=== PATIENT | female | born 1985 | race Caucasian/White ===

== ENCOUNTER 2021-03-20 18:38 | Inpatient (IN) | payer BC ==
[2021-03-20 20:20] VITALS: BMI 34.0
[2021-03-20] MEDS ORDERED: hydrALAZINE 20 MG/ML VIAL SLOW IVP PRN ×2 (21:23)
[2021-03-20] MEDS ORDERED: Ondansetron PF 4 MG/2 ML Vial IVP PRN (21:23)
[2021-03-20] MEDS ORDERED: Dextrose 5%-Lactated Ringers 1,000 ML IV SCH (22:00)
[2021-03-20 23:17] LABS: Hemoglobin 13.2 g/dL (12.0-15.5); Mean Corpuscular HGB CONC 33.9 g/dL (32.0-36.0); Mean Corpuscular Hemoglobin 32.8 pg (27.0-33.0); Mean Corpuscular Volume 96.8 fl (81.6-98.3); Mean Platelet Volume 12.1 fl (7.4-10.4); Platelet Count 256 10x3/uL (150-450); RBC Distribution Width 12.9 % (11.5-14.5); Red Blood Cell (RBC) Count 4.02 10x6/uL (3.90-5.03); White Blood Cell (WBC) Count 11.4 10x3/uL (3.5-10.5)
[2021-03-20] MEDS ORDERED: NS w/ Oxytocin 30 units 500 ML IV SCH (23:25)
[2021-03-21 00:08] LABS: Hep B Surf Ag Non-Reactive S/CO (NonReactive); Syphilis Antibody Nonreactive (Nonreactive); Syphilis Antibody Index 0.04 S/CO (<1.00 Non-Reactive)
[2021-03-21 00:17] LABS: HBSAg Index 0.17 S/CO (0-0.99)
[2021-03-21 08:57] LABS: SARS-CoV-2 NAA Rapid Test DETECTED (NotDetected)
[2021-03-21] MEDS ORDERED: Zolpidem Tartrate 5 MG TAB PO PRN (09:49)
[2021-03-21] MEDS ORDERED: Lidocaine 1% (PF) 30 ML VIAL SC PRN (09:49)
[2021-03-21] MEDS ORDERED: Butorphanol Tartrate 1 MG/ML VIAL SLOW IVP PRN (09:49)
[2021-03-21] MEDS ORDERED: Promethazine HCl 25 MG/ML VIAL IM PRN (09:49)
[2021-03-21] MEDS ORDERED: Lactated Ringer's 1,000 ML IV SCH ×2 (10:00)
[2021-03-21] MEDS ORDERED: NS w/ Oxytocin 30 units 500 ML IV SCH (11:00)
[2021-03-21] MEDS ORDERED: Fentanyl 2 mcg/Bup 0.1% Cadd 100 ML ONE (20:27)
[2021-03-21] MEDS ORDERED: Bisacodyl 10 MG SUPP PR PRN (23:06)
[2021-03-21] MEDS ORDERED: HYDROcodone/Acetaminophen 5/325 mg Tablet PO PRN ×2 (23:06)
[2021-03-21] MEDS ORDERED: Methylergonovine 0.2 MG/ML VIAL IM PRN (23:06)
[2021-03-21] MEDS ORDERED: Boostrix 0.5 ML (Tdap) VIAL IM ONE (23:06)
[2021-03-21] MEDS ORDERED: Misoprostol 200 MCG TAB VAG PRN (23:06)
[2021-03-21] MEDS ORDERED: Milk Of Magnesia 30 ML UDCUP PO PRN (23:06)
[2021-03-21] MEDS ORDERED: traMADol HCl 50 MG TAB PO PRN (23:06)
[2021-03-22] MEDS: Ibuprofen 800 MG TAB PO SCH ×2 (05:51→13:16)
[2021-03-22] MEDS ORDERED: Calcium Carbonate 500 MG ChewTAB PO PRN (06:11)
[2021-03-22] MEDS: Ferrous Sulfate 325 MG TAB PO SCH (08:08)
[2021-03-22] MEDS: Docusate Calcium (SURFAK) 240 MG CAP PO SCH (08:32)
[2021-03-22] MEDS ORDERED: Benzocaine-Menthol 82.5 ML CAN TOP PRN (13:22)
[2021-03-23] MEDS: Ibuprofen 800 MG TAB PO SCH ×3 (06:02→09:58)
[2021-03-23] MEDS: Ferrous Sulfate 325 MG TAB PO SCH ×2 (06:03→07:48)
[2021-03-23] MEDS: Docusate Calcium (SURFAK) 240 MG CAP PO SCH ×2 (06:03→07:50)
[2021-03-23 09:33] VITALS: BP 102/55; TEMP 98.6
== END 2021-03-23 12:23 | disposition home or self-care (01) | DRG 805 ==
LOC: CSHLD/OP 18:38 → CSHLD 03-21 06:43 → OBSVTOIN 03-21 09:49 → CSHLD 03-21 11:32 → CSHANTE 03-22 00:20
PROVIDERS: ADMIT Obstetrics & Gynecology; ATTEND Obstetrics & Gynecology
PROC: 10E0XZZ Delivery of Products of Conception, External Approach (ICD-10-PCS; principal; 2021-03-21)
PROC: 0HQ9XZZ Repair Perineum Skin, External Approach (ICD-10-PCS; 2021-03-21)
DX: O98.52 Other viral diseases complicating childbirth (principal); U07.1 COVID-19; Z37.0 Single live birth; O99.62 Diseases of the digestive system complicating childbirth; O70.0 First degree perineal laceration during delivery; O76 Abnormality in fetal heart rate and rhythm complicating labor and delivery; Z3A.37 37 weeks gestation of pregnancy; K21.9 Gastro-esophageal reflux disease without esophagitis
CPT/HCPCS: 36415; 76819; 85027; 86780; 86850; 86900; 86901; 87340; 99285; G0378; J2001; J2590; U0002